=== PATIENT | female | born 1995 | race Two or more races ===

== ENCOUNTER 2025-03-30 09:52 | Emergency (ER) | payer MEDICAID ==
[~2025-03-30] VITALS: Ht 149.9 cm; Wt 53.1 kg
[2025-03-30] MEDS ORDERED: KETOROLAC TROMETHAMINE INJ 30 MG/ML VIAL ONE (10:41)
[2025-03-30] MEDS ORDERED: ONDANSETRON HCL/PF 4 MG/2 ML VIAL ONE (10:41)
[2025-03-30] MEDS ORDERED: FAMOTIDINE/PF INJ 20 MG/2 ML VIAL IV ONE (10:42)
[2025-03-30] MEDS: IV NS 0.9% 1,000 ML BAG IV ONE (10:47)
[2025-03-30] MEDS: ONDANSETRON HCL/PF 4 MG/2 ML VIAL IVP ONE (10:48)
[2025-03-30] MEDS: FAMOTIDINE/PF INJ 20 MG/2 ML VIAL IV ONE (10:49)
[2025-03-30 10:50] LABS: BASOPHILS % (AUTO) 0.1 % (0.0-2.0); HEMATOCRIT 35 % (33-45); HEMOGLOBIN 10.9 g/dL (11.5-14.8); LYMPHOCYTES # (AUTO) 0.8 K/uL (0.8-4.8); LYMPHOCYTES % (AUTO) 6.7 % (20.0-44.0); MEAN CORPUSCULAR HEMOGLOBIN 24 PG (26.0-33.0); MEAN CORPUSCULAR HGB CONC 32 g/dl (31.0-36.0); MEAN CORPUSCULAR VOLUME 75 fL (82-100); MONOCYTES # (AUTO) 0.2 K/uL (0.1-1.30); MONOCYTES % (AUTO) 2.1 % (2.0-12.0); NEUTROPHILS # (AUTO) 10.2 K/uL (1.8-8.9); NEUTROPHILS % (AUTO) 91.1 % (43.0-81.0); PLATELET COUNT (AUTO) 358 K/uL (150-450); RED BLOOD CELL COUNT(AUTO) 4.61 MIL/uL (4.0-5.2); RED CELL DISTRIBUTION WIDTH 16.1 % (11.5-15.0); WHITE BLOOD COUNT (AUTO) 11.3 K/uL (4.3-11.0)
[2025-03-30 10:53] LABS: APPEARANCE,URINE SLIGHTLY CLOUDY (CLEAR); BILIRUBIN,URINE SMALL (NEGATIVE); BLOOD, URINE Large Ery/uL (NEGATIVE); COLOR,URINE DARK YELLOW (YELLOW); KETONES,URINE 40 mg/dL (NEGATIVE); LEUKOCYTE ESTERASE ,URINE Negative (NEGATIVE); PH,URINE 5.5 (5.0-8.0); PROTEIN,URINE >=300 mg/dl (NEGATIVE); UGLUCOSE Negative (NEGATIVE); UROBILINOGEN,URINE 0.2 EU/dL (0.2)
[2025-03-30 10:55] LABS: NITRITE, URINE NEGATIVE (NEGATIVE); PREGNANCY TEST URINE QUAL NEGATIVE (NEGATIVE)
[2025-03-30 10:58] LABS: CALCIUM, SERUM 9.1 mg/dL (8.5-10.1); CREATININE 1.1 mg/dL (0.6-1.3); POTASSIUM 3.7 mmol/L (3.5-5.1)
[2025-03-30] MEDS: KETOROLAC TROMETHAMINE INJ 30 MG/ML VIAL IV ONE (11:00)
[2025-03-30 11:01] LABS: ADD URINE CULTURE NO; BACTERIA,URINE Few /HPF (None Seen); RBC,URINE TOO NUMEROUS TO COUN /HPF (0-2); SQUAMOUS EPITHELIAL CELL,UR Few /HPF (None Seen); WBC,URINE 0-2 /HPF (0-3)
[2025-03-30 11:12] LABS: ALBUMIN 3.9 g/dL (3.4-5.0); BILIRUBIN,DIRECT 0.1 mg/dL (0.0-0.2); BILIRUBIN,TOTAL 0.5 mg/dL (0.2-1.0); TOTAL PROTEIN, SERUM 8.2 g/dL (6.4-8.2)
[2025-03-30] MEDS ORDERED: TAMSULOSIN 0.4 MG CAP.SR.24H ONE (12:19)
[2025-03-30] MEDS: TAMSULOSIN 0.4 MG CAP.SR.24H PO ONE (12:23)
[2025-03-30] MEDS ORDERED: ONDA4TAB5 PO (12:40)
[2025-03-30] MEDS ORDERED: KETO10TA2 PO (12:40)
[2025-03-30] MEDS ORDERED: TAMS-12 PO (12:40)
[2025-03-30 13:01] VITALS: BP 110/70; TEMP 98; O2SAT 98
== END 2025-03-30 13:01 | disposition home or self-care (01) ==
LOC: ER 10:06
DX: N13.2 Hydronephrosis with renal and ureteral calculous obstruction (principal); M41.9 Scoliosis, unspecified; R10.2 Pelvic and perineal pain
CPT/HCPCS: 99285; 74176; 96374; 96375; 96361; 85025; 80048; 87086; 83690; 80076; 84703; 81001; 36415; 84702; J1885; J1308; J2405; J7030